=== PATIENT | male | born 1945 | race Caucasian/White ===

== ENCOUNTER 2023-10-24 03:22 | Emergency (ER) | payer MEDICARE, SELFPAY ==
[2023-10-24 03:32] VITALS: PULSE 114; RESP 24; O2SAT 95
[2023-10-24 03:34] VITALS: BP 122/95; PULSE 108; RESP 20; TEMP 36.6; O2SAT 96; BMI 36.2
--- NOTE | 2023-10-24 03:35 | DI.RAD.S_ITS ---
PROCEDURE: XR CHEST 1V INDICATIONS: SOB TECHNIQUE: One view of the chest was acquired. COMPARISON: None. FINDINGS: Surgical changes and devices: None. Lungs and pleura: Low lung volumes. Bibasilar opacities. No pleural effusions or pneumothorax. Mediastinum: Mediastinal contours appear normal. Heart size is normal. Bones and chest wall: No suspicious bony lesions. Overlying soft tissues appear unremarkable. IMPRESSION: Bibasilar opacities could represent chronic changes or infiltrate. These are likely is centered by relatively low lung volumes and portable technique. Findings are concordant with preliminary interpretation provided by [facility]. Dictated by: Reece Lawler M.D. on 10/24/2023 at 7:41 Approved by: Reece Lawler M.D. on 10/24/2023 at 7:42
--- NOTE | 2023-10-24 03:47 | ED_ITS ---
HPI - General Adult General Chief complaint: Shortness of Breath/Dyspnea Stated complaint: CHEST PAIN, Time Seen by Provider: 10/24/23 03:34 Source: patient Mode of arrival: Ambulatory History of Present Illness HPI narrative: Patient is a 77-year-old male. History of CHF and also paroxysmal atrial fibrillation. Is on anticoagulation. Is here for evaluation of was initially stated to be chest pain however the patient states it is more of a ?queasy? feeling. Some shortness of breath. No lower extremity swelling. He states that he was washing his car yesterday when he started to feel uncoordinated. He woke up this morning with feeling like his heart was beating fast. He states he would similar symptoms a couple weeks ago when he was in [place] on vacation. He states that those symptoms resolved before he could go get evaluated. Related Data Allergies Allergy/AdvReac Type Severity Reaction Status Date / Time No Known Drug Allergies Allergy Verified 10/24/23 03:41 Review of Systems Review of Systems ROS Unobtainable: All systems reviewed & are unremarkable except as noted in HPI and below Patient History Social History Smoking Status: Current some day smoker Smoking Status: Current some day smoker tobacco type: cigars alcohol intake frequency: 0-2 drinks per day Alcohol type: hard liquor Substance Use Type: does not use Exam Initial Vital Signs Initial Vital Signs: Vital Signs Pulse Rate 114 H 10/24/23 03:32 Respiratory Rate 24 10/24/23 03:32 Pulse Oximetry 95 10/24/23 03:32 Oxygen Delivery Method Room Air 10/24/23 03:32 Const General: cooperative, comfortable and No ill appearing [facility] Head: normal to inspection Resp Effort & Inspection: normal respiratory effort Auscultation: clear to auscultation bilaterally Cardio Rate: tachycardic Rhythm: abnormal rhythm GI Inspection: normal to inspection and non-distended Skin General: no rashes or lesions noted Neuro General: patient alert, patient awake, patient oriented x3 and moves all extremities Extrem General: No edema Course Orders Ordered: ED Orders 10/24/23 03:35 XR chest 1V Stat EKG-12 Lead Stat 10/24/23 03:50 Complete Blood Count AUTO DIFF Stat Comprehensive Metabolic Panel Stat Lipase Stat Troponin & CK Cardiac Panel Stat Discontinued Medications Ondansetron HCl (Ondansetron 4 Mg/2 Ml Inj) 4 mg IV NOW ONE Stop: 10/24/23 04:10 Last Admin: 10/24/23 04:24 Dose: 4 mg Documented By: GENIE Vital Signs Vital signs: Vital Signs - 8 hr 10/24/23 03:32 10/24/23 03:34 10/24/23 04:00 Temperature 97.9 F Pulse Rate 114 H 108 H 103 H Respiratory Rate 24 20 19 Blood Pressure 122/95 H Pulse Oximetry 95 96 95 Oxygen Delivery Method Room Air Room Air Room Air 10/24/23 04:00 10/24/23 04:30 10/24/23 04:30 Temperature Pulse Rate 106 H Respiratory Rate 23 Blood Pressure 140/93 H 160/99 H Pulse Oximetry 95 Oxygen Delivery Method Room Air Medical Decision Making Lab Data Lab results reviewed: Yes I reviewed the patient's lab results. 10/24/23 03:50 10/24/23 03:50 Labs: Lab Results 10/24/23 Range/Units 03:50 WBC 7.7 (4.5-11.0) X10^3/uL RBC 4.81 (4.5-5.9) X10^6/uL Hgb 15.0 (13.5-17.5) g/dL Hct 43.0 (41-53) % MCV 89.3 (80-100) fL MCH 31.2 (26-34) PG MCHC 34.9 (30-36) % RDW 14.4 (11.6-14.8) % Plt Count 180 (150-400) X10^3/uL Neut % (Auto) 56.7 (50-75) % Lymph % (Auto) 27.8 (25-40) % [place] % (Auto) 10.1 (3-14) % Eos % (Auto) 4.4 H (2-4) % Baso % (Auto) 1.0 (0-2) % Neut # (Auto) 4400 (9510-3742) /uL Lymph # (Auto) 2200 (7971-1385) /uL [place] # (Auto) 800 (0-900) /uL Eos # (Auto) 300 (0-450) /uL Baso # (Auto) 100 (0-100) /uL Sodium 140 (137-145) mmol/L Potassium 3.5 (3.4-5.1) mmol/L Chloride 104 (98-107) mmol/L Carbon Dioxide 26 (22-32) mmol/L BUN 17 (9-20) mg/dL Creatinine 0.87 (0.66-1.25) mg/dL Estimated GFR > 60 (>60) mL/min BUN/Creatinine Ratio 19.5 (6-22) Glucose 129 H (80-110) mg/dL Calcium 9.2 (8.4-10.2) mg/dL Total Bilirubin 0.7 (0.2-1.3) mg/dL AST 53 (17-59) IU/L ALT 61 H (<50) IU/L Alkaline Phosphatase 41 (38-126) U/L Total Creatine Kinase 127 (55-170) U/L Troponin I < 0.012 (0.01-0.034) ng/mL Total Protein 7.5 (6.3-8.2) g/dL Albumin 4.4 (3.5-5.0) g/dL Globulin 3.1 (1.7-4.1) g/dL Albumin/Globulin Ratio 1.4 (1.0-2.8) Lipase 172 (23-300) U/L Imaging Data Chest x-ray: Radiologist's Impression: Bilateral opacities could represent chronic change or infiltrate. There are likely accentuated by relatively low lung volumes in by portable technique ECG Data Attestation: I personally reviewed and interpreted this ECG as follows: Interpretation: Atrial fibrillation Ventricular rate 104 Right bundle-branch block Normal axis Normal QRS Normal QTC No ST T wave changes MDM Narrative Medical decision making narrative: Patient did have improvement of symptoms however not complete resolution. His heart rate is consistently between 95-105. He is in AFib. Upon further discussion with the patient he states his heart rate is normally in the 60s so I suspect that even though he is not consistently tachycardic with a heart rate greater than 100 he was relatively tachycardic. He is on anticoagulation. He takes sotalol. I suspect that his AFib is the source of his symptoms today. It also fits what he described that he had a couple weeks ago while he was on vacation we had a sudden onset of the symptoms that a fast heart rate that then improved. I discussed with him options. He was a candidate for cardioversion. He has had a cardioversion in the past. We also discussed the possibility that he could convert back to sinus rhythm on his own as he is done this in the past. We discussed the risks and benefits of the cardioversion versus discharge home and waiting. He understands that being in atrial fibrillation for extended periods of time does put strain on his heart. After this discussion he would like to hold on a cardioversion to see whether not he goes back into sinus rhythm on his own. Will not make any changes to his medications right now. He was advised to continue to take his anticoagulation so that he remains a candidate for cardioversion. He was advised to contact his primary doctor and also his rv repair technician. If his symptoms worsen advised that he return to the emergency department for further evaluation. He expressed understanding and agreement with plan. Discharge Plan Departure Patient Disposition: Home Clinical Impression: Atrial fibrillation Instructions: DI for Atrial Fibrillation Activity Restrictions/Additional Instructions: After our discussion we opted to hold on a cardioversion. I highly recommend that you continue to take all of your medications as directed. Contact your primary doctor/rv repair technician for a follow-up because if you do not convert back into a normal rhythm on your own, this episode of AFib does need to be addressed most likely with the cardioversion. Return to the emergency department for new or worsening symptoms. Stand Alone Forms: Patient Portal/API
[2023-10-24 04:00] VITALS: BP 140/93; PULSE 103; RESP 19; O2SAT 95
[2023-10-24 04:02] LABS: Add Manual Diff / Slide Review NO; Basophils Absolute Auto 100 /uL (0-100); Eosinophils Absolute Auto 300 /uL (0-450); Eosinophils Percent Auto 4.4 % (2-4); Lymphocytes Absolute Auto 2200 /uL (1100-4500); Lymphocytes Percent Auto 27.8 % (25-40); Mean Corpuscular HGB Conc 34.9 % (30-36); Mean Corpuscular Hemoglobin 31.2 PG (26-34); Mean Corpuscular Volume 89.3 fL (80-100); Monocytes Absolute Auto 800 /uL (0-900); Monocytes Percent Auto 10.1 % (3-14); Neutrophils Absolute Auto 4400 /uL (1500-7000); Neutrophils Percent Auto 56.7 % (50-75); Platelet Count 180 X10^3/uL (150-400); Red Blood Cell Count 4.81 X10^6/uL (4.5-5.9); Red Cell Distribution Width 14.4 % (11.6-14.8); White Blood Cell Count 7.7 X10^3/uL (4.5-11.0)
[2023-10-24 04:14] LABS: Creatine Kinase 127 U/L (55-170)
[2023-10-24 04:16] LABS: Alanine Aminotransferase 61 IU/L (<50); Albumin 4.4 g/dL (3.5-5.0); Albumin Globulin Ratio 1.4 (1.0-2.8); Alkaline Phosphatase 41 U/L (38-126); Aspartate Aminotransferase 53 IU/L (17-59); BUN Creatinine Ratio 19.5 (6-22); Bilirubin Total 0.7 mg/dL (0.2-1.3); Blood Urea Nitrogen 17 mg/dL (9-20); Calcium 9.2 mg/dL (8.4-10.2); Carbon Dioxide 26 mmol/L (22-32); Chloride 104 mmol/L (98-107); Estimated Glomerular Filt Rate > 60 mL/min (>60); Globulin 3.1 g/dL (1.7-4.1); Glucose 129 mg/dL (80-110); HEMOLYSIS < 15 (0-50); Lipase 172 U/L (23-300); Potassium 3.5 mmol/L (3.4-5.1); Sodium 140 mmol/L (137-145); Total Protein 7.5 g/dL (6.3-8.2)
[2023-10-24] MEDS: ONDANSETRON 4 MG/2 ML INJ IV (04:24)
[2023-10-24 04:27] LABS: Troponin I < 0.012 ng/mL (0.01-0.034)
[2023-10-24 04:30] VITALS: BP 160/99; PULSE 106; RESP 23; O2SAT 95
== END 2023-10-24 05:03 | disposition home or self-care (01) ==
PROVIDERS: Emergency Provider Emergency Medicine; Family Provider Physician Assistant Medical
DX: I48.91 Unspecified atrial fibrillation (principal); R06.02 Shortness of breath; Z79.01 Long term (current) use of anticoagulants
CPT/HCPCS: 36415; 71045; 80053; 82550; 83690; 84484; 85025; 93005; 93010; 96374; 99284; J2405